=== PATIENT | female | born 1995 | race Caucasian/White ===

== ENCOUNTER 2018-01-17 13:16 | Emergency (ER) | payer BC ==
[2018-01-17] MEDS: IBUPROFEN 600 MG TAB PO (14:36)
[2018-01-17 15:55] LABS: URINE BLOOD (Dip) POC Negative (NEGATIVE); URINE GLUCOSE (Dip) POC Negative (NEGATIVE); URINE KETONES (Dip) POC Negative (NEGATIVE); URINE LEUKOCYTE EST (Dip) POC Negative (NEGATIVE); URINE NITRITE (Dip) POC Negative (NEGATIVE); URINE TOTAL PROTEIN POC Negative (NEGATIVE)
[2018-01-17 15:55] LABS: URINE PH (Dip) POC 6.5 (5.0-8.5)
== END 2018-01-17 15:00 | disposition home or self-care (01) ==
LOC: FTE 13:16
DX: R51 Headache (principal)
CPT/HCPCS: 81003; 81025; 99282